=== PATIENT | male | born 1980 | race Caucasian/White ===

== ENCOUNTER 2022-07-28 06:11 | Day surgery (SDC) | payer BC ==
[~2022-07-28 06:11] MED LIST: Lactated Ringers 1,000 ML IV SCH; Sodium Chloride 0.9% 10 ML Syringe FLUSH PRN
[2022-07-28] MEDS ORDERED: Propofol 200 MG/20 ML SDV IV ONE (06:12)
[2022-07-28] MEDS ORDERED: Ketamine 500 mg/10 ML MDV IV ONE (06:12)
[2022-07-28] MEDS ORDERED: Midazolam 1 MG/ML 2 ML SDV IV ONE (06:12)
[2022-07-28] MEDS ORDERED: Lidocaine 2% 100 MG/5 ML Syringe IVPUSH ONE (06:12)
[2022-07-28] MEDS ORDERED: Sodium Chloride 0.9% 10 ML Syringe FLUSH PRN (06:15)
[2022-07-28] MEDS ORDERED: Lactated Ringers 1,000 ML IV SCH (06:15)
== END 2022-07-28 08:35 | disposition home or self-care (01) ==
LOC: FB.SDS 06:11
PROVIDERS: ATTEND Surgery
DX: K21.00 Gastro-esophageal reflux disease with esophagitis, without bleeding (principal); K22.70 Barrett's esophagus without dysplasia; K44.9 Diaphragmatic hernia without obstruction or gangrene; K21.9 Gastro-esophageal reflux disease without esophagitis; F17.210 Nicotine dependence, cigarettes, uncomplicated; Z79.899 Other long term (current) drug therapy
CPT/HCPCS: 00731-QZ; 88305; 88313; J2250; J2704; J3490; J7120